=== PATIENT | male | born 1985 | race Caucasian/White ===

== ENCOUNTER → 2023-09-09 10:16 | Outpatient (REF) | payer BC, SELFPAY ==
[2023-09-09 12:45] LABS: IgA 197 mg/dl (70-400); IgG 1013 mg/dl (700-1600)
[2023-09-09 13:01] LABS: Iron 126 ug/dl (49-181)
[2023-09-09 13:11] LABS: Percent Saturation 38 % (20-50); Total Iron Binding Capacity 325 ug/dl (261-462)
[2023-09-09 19:23] LABS: Hepatitis B Surface Antigen Negative (Negative)
[2023-09-09 19:41] LABS: Hepatitis C Antibody Negative (Negative)
[2023-09-09 19:44] LABS: Hepatitis A Antibody, Total Negative (Negative)
[2023-09-09 20:41] LABS: Hepatitis B Surface Antibody Indeterminate
[2023-09-10 15:27] LABS: IgM 81 mg/dl (40-230)
[2023-09-12 04:30] LABS: ANA, IgG Reflex to HEp-2 None Detected (None Detected)
[2023-09-12 08:02] LABS: F-Actin Antibody IgG 5 Units (0-19); Mitochondrial M2 Ab, IgG 6.6 Units (0.0-24.9)
== END ==
LOC: RAD 10:16
PROVIDERS: ATTENDING PHYSICIAN Internal Medicine Gastroenterology; FAMILY PHYSICIAN Family Medicine
DX: K76.0 Fatty (change of) liver, not elsewhere classified (principal); R13.10 Dysphagia, unspecified
CPT/HCPCS: 36415; 74221; 76700; 82390; 82728; 82784; 83540; 83550; 86015; 86038; 86376; 86381; 86706; 86708; 86803; 87340

== ENCOUNTER → 2024-08-07 07:28 | Outpatient (REF) | payer OTHER, SELFPAY | LOC: HWRAD 07:28 | PROVIDERS: ATTENDING PHYSICIAN Family Medicine | DX: M79.89 Other specified soft tissue disorders (principal) | CPT/HCPCS: 93971 ==